=== PATIENT | female | born 1975 | race Caucasian/White ===

== ENCOUNTER 2018-08-27 18:41 | Emergency (ER) | payer SELFPAY ==
[~2018-08-27] VITALS: Ht 170.2 cm; Wt 54.5 kg
[~2018-08-27 18:41] MED LIST: ANTIBIOTIC
[2018-08-27] MEDS ORDERED: POVIDONE-IODINE 10% 240 ML SOLUTION TP ONE (20:15)
[2018-08-27] MEDS ORDERED: BACITRACIN 0.9 GM PACKET OINTMENT TP ONE (20:15)
[2018-08-27] MEDS ORDERED: HYDROCODONE/ACETAMINOPHEN 5-325 MG TABLET PO ONE (20:15)
[2018-08-27] MEDS ORDERED: POVIDONE-IODINE 10% 15 ML SOLUTION UD TP ONE (20:15)
[2018-08-27] MEDS ORDERED: PERTUSS(ACELL),DIPH,TET VAC/PF 0.5 ML VIAL IM ONE (20:15)
[2018-08-27 20:40] VITALS: BP 116/68
== END 2018-08-27 21:24 | disposition home or self-care (01) ==
LOC: EMS 18:42
DX: S81.812A Laceration without foreign body, left lower leg, initial encounter (principal); W45.8XXA Other foreign body or object entering through skin, initial encounter; Y93.89 Activity, other specified; Y92.89 Other specified places as the place of occurrence of the external cause; Y99.8 Other external cause status
CPT/HCPCS: 12004; 90471; 90715